=== PATIENT | female | born 1980 | race Caucasian/White ===

== ENCOUNTER 2017-03-13 23:20 | Emergency (ER) | payer OTHER ==
[~2017-03-13] VITALS: Ht 172.7 cm; Wt 86.2 kg
[2017-03-13 23:27] VITALS: BP_SYST 115
[2017-03-14] MEDS: ACETAMINOPHEN 500 MG TABLET PO ONE (00:36)
[2017-03-14 01:38] VITALS: BP_SYST 120
== END 2017-03-14 01:38 | disposition home or self-care (01) ==
LOC: SED 23:20
DX: S82.492A Other fracture of shaft of left fibula, initial encounter for closed fracture (principal); G80.9 Cerebral palsy, unspecified; Z88.1 Allergy status to other antibiotic agents; W19.XXXA Unspecified fall, initial encounter; Y93.89 Activity, other specified; Y99.8 Other external cause status; Y92.89 Other specified places as the place of occurrence of the external cause
CPT/HCPCS: 73590-TC; 99284